=== PATIENT | female | born 1995 | race Caucasian/White ===

== ENCOUNTER 2025-10-26 09:06 | Day surgery (SDC) | payer BC ==
[2025-10-26] MEDS ORDERED: Acetaminophen 500 MG TAB ONE (09:29)
[2025-10-26] MEDS: Acetaminophen 500 MG TAB PO SCH (09:33)
[2025-10-26 14:31] VITALS: BP 125/62; TEMP 98.1
== END 2025-10-26 14:35 | disposition home or self-care (01) ==
LOC: ONC/OP 09:06
PROVIDERS: ATTEND Obstetrics & Gynecology
DX: O99.013 Anemia complicating pregnancy, third trimester (principal); Z3A.35 35 weeks gestation of pregnancy
CPT/HCPCS: 96365; 96367; J1756; J7050